=== PATIENT | male | born 1950 | race Caucasian/White ===

== ENCOUNTER 2017-12-17 04:54 | Emergency (ER) | payer OTHER | END 2017-12-17 08:41 | disposition home or self-care (01) | LOC: D.ER 04:54 | DX: T82.9XXA Unspecified complication of cardiac and vascular prosthetic device, implant and graft, initial encounter (principal); R42 Dizziness and giddiness; I49.3 Ventricular premature depolarization ==

== ENCOUNTER 2018-09-19 23:01 | Emergency (ER) | payer OTHER ==
[~2018-09-19] VITALS: Ht 172.7 cm; Wt 90.9 kg
[2018-09-19 23:05] VITALS: Ht 172.7 cm; Wt 90.9 kg
[2018-09-19] MEDS ORDERED: ALBUTEROL SULF8.5 GM (23:06)
[2018-09-19] MEDS ORDERED: HYDROCODON-ACE1 EAC7 (23:07)
[2018-09-19] MEDS ORDERED: BAYER ASPIRIN325 MG (23:07)
[2018-09-19] MEDS ORDERED: LANOXIN125 MCG PO (23:07)
[2018-09-19] MEDS ORDERED: FUROSEMIDE20 MG (23:07)
[2018-09-19] MEDS ORDERED: CRESTOR40 MG (23:08)
[2018-09-19] MEDS ORDERED: TOPROL XL200 MG (23:08)
[2018-09-19] MEDS ORDERED: ENTRESTO 49 MG1 EACH (23:08)
[2018-09-19] MEDS ORDERED: ALDACTONE25 MG (23:08)
[2018-09-19 23:36] LABS: BASOPHILS 0.3 % (0-2); EOSINOPHILS 2.8 % (0-7); HEMATOCRIT 49.3 % (42.0-54.0); IMMATURE GRANULOCYTES 0.5 % (0-5); LYMPHOCYTES 28.9 % (15-50); MCH 31.9 pg (26.0-34.0); MCHC 34.5 g/dL (31.0-37.0); MCV 92.5 fL (80.0-100.0); MEAN PLATELET VOLUME 11.5 fL (7.4-10.4); NEUTROPHILS 58.5 % (40-80); PLATELET COUNT 165 10x3/uL (130-400); RBC 5.33 10x6/uL (4.20-6.10); WBC 17.3 10x3/uL (4.8-10.8)
[2018-09-19 23:47] LABS: INR 1.06 (0.85-1.17); PROTIME 13.3 SECONDS (11.6-15.0)
[2018-09-19 23:48] LABS: APTT 33.9 SECONDS (22.8-39.4)
[2018-09-19 23:52] LABS: ALBUMIN 3.8 g/dL (3.4-5.0); ALKALINE PHOSPHATASE 41 U/L (46-116); ALT (SGPT) 27 U/L (10-68); BILIRUBIN - TOTAL 0.43 mg/dL (0.2-1.3); CALC OSMOLALITY 273 mosm/kg (275-300); CALCIUM 8.5 mg/dL (8.5-10.1); CARBON DIOXIDE 24.7 mmol/L (21.0-32.0); CHLORIDE - SERUM 100 mmol/L (98-107); CREATININE - SERUM 1.6 mg/dL (0.6-1.3); GLUCOSE 110 mg/dL (74-106); POTASSIUM - SERUM 4.1 mmol/L (3.5-5.1); PROTEIN - SERUM 7.8 g/dL (6.4-8.2); SODIUM 134 mmol/L (136-145); UREA NITROGEN 26 mg/dL (7-18); eGFR NON AFRICAN AMERICAN 46 mL/min (90-120)
[2018-09-20 00:07] LABS: CKMB 1.1 U/L (0.0-3.6); CREATINE KINASE 109 UL (21-232); DIGOXIN 0.67 ng/mL (0.90-2.00); PRO BNP 1193 pg/mL (0-125)
[2018-09-20 00:12] LABS: TROPONIN-I 0.071 ng/mL (0.000-0.060)
[2018-09-20] MEDS ORDERED: DOXYCYCLINE HY100 M2 PO (01:39)
[2018-09-20 02:15] VITALS: BP 104/56
== END 2018-09-20 02:15 | disposition home or self-care (01) ==
LOC: D.ER 23:01
PROVIDERS: Family Medicine
DX: J20.9 Acute bronchitis, unspecified (principal); I50.22 Chronic systolic (congestive) heart failure; J44.9 Chronic obstructive pulmonary disease, unspecified; D72.829 Elevated white blood cell count, unspecified